=== PATIENT | female | born 2000 | race Asian ===

== ENCOUNTER 2021-10-30 10:46 | Emergency (ER) | payer OTHER ==
[~2021-10-30] VITALS: Ht 144.8 cm; Wt 59.0 kg
[~2021-10-30 10:46] MED LIST: ARIP5TAB37 PO; FLUO10CA24 PO; TRAZ-252 PO
[2021-10-30 11:49] LABS: COVID AG,FIA SOURCE NASOPHARYNGEAL
[2021-10-30 20:10] VITALS: BP 129/77
== END 2021-10-30 20:20 | disposition short-term general hospital (02) ==
LOC: EMS 10:46
DX: F20.9 Schizophrenia, unspecified (principal); F32.A Depression, unspecified; Z20.822 Contact with and (suspected) exposure to COVID-19
CPT/HCPCS: 99285; Z7502